=== PATIENT | female | born 1940 | race Caucasian/White ===

== ENCOUNTER 2019-03-15 08:47 | Day surgery (SDC) | payer MEDICARE, SELFPAY ==
[2019-03-13 08:07] VITALS: BMI 29.7
[2019-03-15] VITALS (9 sets, daily range): BP systolic 115–158; BP diastolic 67–99; PULSE 55–70; RESP 12–19; TEMP 35.8–36.9; O2SAT 79–98; BMI 29.7
--- NOTE | 2019-03-15 10:11 | PM.PREOP ---
Pre-operative Note Interval Note History & Physical reviewed/Exam performed by Physician: Yes Changes to H&P: No
--- NOTE | 2019-03-15 10:31 | SUR.PREOP ---
Pre-op note: patient complained of pressure under breast and around to back after returning from bathroom. VS with elevated BP. After some deep breaths and relaxation. Patient stated that she is a little nervous. BP decreased to 177/88. Dr. Conner and Dr. Herrera informed of patient symptoms. HR 61, O2 Sat 100 RA. Sister at bedside.
[2019-03-15] MEDS: MIDAZOLAM 2 MG/2 ML VIAL IV (10:44)
[2019-03-15] MEDS: CEFAZOLIN 2 GM/100 ML FROZ.PIGGY IV (11:07)
--- NOTE | 2019-03-15 11:46 | SUR.OPER ---
Beach chair with skytron shoulder positioner. Lower body on padded OR bed. Head in foam padded head cradle, secured with straps. Non-operative arm secured <90 degrees abduction. Pillow under knees. Safety belt at thigh. Cloth tape over blanket over lower legs.
[2019-03-15] MEDS: SODIUM CHLORIDE IRRIG SOLUTION 3,000 ML, EPINEPHrine 1 MG IRR (11:56)
[2019-03-15] MEDS: LIDOCAINE 1% W/EPI 20 ML INJ (12:00)
[2019-03-15] MEDS: LACTATED RINGERS 1,000 ML 42 ML IV (12:14)
--- NOTE | 2019-03-15 13:43 | SUR.PHASEI ---
Report to Keri Sanchez
--- NOTE | 2019-03-15 13:52 | PM.OP.1 ---
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 Surgeon: Cruzito Triplett Assistant Nurse Manager: Fabi Lawton Anesthesia Type: General and Peripheral nerve block Operative Notes Findings: Complete tear of the supraspinatus with some extension into the infraspinatus with retraction to the rim of the glenoid. Arthritic changes more so on the glenoid then the humeral head. But no sign of complete cartilage loss. No loose bodies. Degenerative changes to the labrum extensively. Subluxation of the biceps tendon due to the subscapularis tear. Closure Type: primary Specimen(s): none sent Applied: implant(s) Estimated Blood Loss (mL): 10 Blood products transfused: none Procedure in detail: On date of service, Patient was met in the holding area. The operative site was signed and witnessed by the OR staff. The surgeries once again discussed with the patient and any remaining questions they had were answered fully. Patient was taken back to the operating theater and placed on the operating table in a supine position. Great care was taken to ensure that all bony prominences were properly padded. Patient was then placed into the beach chair position. The head and neck were properly positioned and secured. A timeout was performed verifying patient's name, procedure, and the operative site. The upper extremity was then prepped and draped in the normal sterile fashion. Previously, the bony anatomy and portal sites were marked out as well as injected with Marcaine with epinephrine. An 11 blade was used to make an incision in the posterior aspect of the shoulder. The camera was placed, and a diagnostic shoulder scope was performed. Findings listed above. Next under direct visualization, a anterior portal was made. Shaver was brought in and extensive debridement of the glenohumeral joint was performed. Patient had significant amount of degenerative changes to the labral tissue as well as signs of a previous biceps rupture. The residual tissue of the biceps tendon was debrided with a shaver. Once all the degenerative tissue in the glenohumeral joint was removed we then turned our attention to the subacromial space. Next the camera was placed into the subacromial space. A lateral portal was obtained under direct visualization. A combination of the shaver and vapor wand, a debridement of the inflamed tissue as well as inflamed bursa was performed. The lateral gutter was also cleaned out. This gave us good visualization of the bursal aspect of the rotator cuff as well as the acromial arch. As mentioned above, patient had complete tear of the supraspinatus with some extension into the infraspinatus. The torn edge of the rotator cuff showed quite a bit of degenerative changes but the remaining rotator cuff tissue was still quite robust and healthy. Also both the supraspinatus and infraspinatus had very good excursion to the rotator cuff footprint. Patient also had a complete tear of his subscapularis. Shaver was used to completely debride the bursal tissue of the subacromial and subdeltoid space. A 5.5 bur was used to do a subacromial decompression. Due to the subscapularis tear it was decided at this point to convert to an open procedure. The anterior portal site was extended both distally and proximally going up to the AC joint as well as distally towards the axillary crease. Ten blade was used to incise through skin and fascial tissue. Electrocautery was used to achieve hemostasis. Continued sharp dissection was performed until the deltoid fascia was visualized. We could see our opening into the deltoid from our anterior portal. This was extended both distally and proximally giving us good visualization of the humeral head as well as the subacromial space. Using a Cade elevator the rotator cuff was freed of any adhesions both articular sided as well as bursal sided. The degenerative portion was sharply excised using a 10 blade. Traction sutures were placed. Next a speed bridge repair was done to repair both the supraspinatus and infraspinatus back to the rotator cuff footprint. Combination of the rongeur and bur were used to decorticate the rotator cuff footprint. Double row repair was performed of the supraspinatus and infraspinatus forming a secure repair as well as nayana covering the humeral head which was previously almost completely exposed. We next turned our attention to subscapularis. Cade elevator was used again to free up the tendon tissue from adhesions both bursal sided and articular sided. Once we had good excursion of the subscapularis fiber tape was passed in a horizontal mattress fashion twice and then was placed into 2 separate swivel lock anchor to secure the subscapularis back to the lesser tuberosity. Shoulder was taken through range of motion. Good overall repair and coverage of the rotator cuff and humeral head. Wound was copiously irrigated then closed in a layered fashion. Deltoid fascia was repaired using FiberWire. This gave a good solid repair of the split that was made in the deltoid fascia. Shoulder was cleaned dried dressed patient was extubated and taken to the PACU in stable condition. Complications: none Post-operative Condition: stable Disposition: PACU Plan for aftercare: Patient will follow our postoperative protocol for rotator cuff repair. Patient had the subscapularis repaired as well so no external rotation beyond 15?.
--- NOTE | 2019-03-15 15:29 | SUR.PHASEII ---
Assisted patient to dress, sling placed. Assisted to void. Brief placed.
== END 2019-03-15 15:07 | disposition home or self-care (01) ==
PROVIDERS: PCP Family Medicine; Visit Provider Orthopaedic Surgery
PROC: (CPT 29827; principal; 2019-03-15 10:15)
DX: S46.012A Strain of muscle(s) and tendon(s) of the rotator cuff of left shoulder, initial encounter (principal); W19.XXXA Unspecified fall, initial encounter; G89.18 Other acute postprocedural pain
CPT/HCPCS: 23410; 29823; 64415; 64450; J0171; J0690; J1100; J2250; J2405; J2704; J3010

== ENCOUNTER 2021-06-16 10:58 | Day surgery (SDC) | payer MEDICARE, SELFPAY ==
[2021-06-16 11:25] VITALS: BP 159/91; PULSE 62; RESP 16; TEMP 36.7; O2SAT 97; BMI 29.8
[2021-06-16] MEDS: PROPARACAINE 0.5% OPHTH SOL 2 DROPS EYE-OP (11:35)
[2021-06-16] MEDS: CATARACT EYE COMPOUND (10 DROPS/SYRINGE) 3 DROPS EYE-OP (11:42)
--- NOTE | 2021-06-16 12:28 | PM.PREOP ---
Pre-operative Note Interval Note History & Physical reviewed/Exam performed by Physician: Yes Changes to H&P: No
--- NOTE | 2021-06-16 12:29 | PM.OP.1 ---
Operative Date/Time/Diagnoses Pre-op diagnosis: Nuclear cataract right eye Procedure & Clinicians Procedure: Cataract Surgery Same procedure as scheduled: Yes Surgeon: Everette Durant Anesthesia Type: MAC +/- and Sedation Operative Notes Procedure in detail: Patient brought to the operating suite. Tetracaine drops placed in the right eye. Patient was prepped and draped in sterile manner. Wire lid speculum was placed in the eye. Betadine drops were placed on the eye. This was irrigated. Lidocaine jelly was placed on the eye. A paracentesis port was created with a side-port blade. 0.1 mL 1% preservative free lidocaine was injected into the anterior chamber. The anterior chamber was deepened with viscoelastic. 2.6 mm keratome was used to create a temporal clear corneal incision. Cystotome and Utrata forceps were used to create continuous tear capsulorrhexis. Balanced salt solution was used to hydro dissect the nucleus. The phacoemulsification handpiece was inserted and the nucleus was removed using the stop and chop technique. The irrigation aspiration handpiece was inserted and the remaining cortex was removed. Anterior chamber was deepened with viscoelastic. An [place] DIB00 intraocular lens with a power of 23.5 was injected into the capsular bag. Irrigation aspiration handpiece was inserted and the remaining viscoelastic was removed. Incision was hydrated with balanced salt solution and found to be leak free with pressure with Weck-Trista sponges. 0.1 mL Vigamox injected anterior chamber. 0.3 mL Kenalog 10 mg was injected subconjunctivally. Lid speculum was removed. The patient left the operating room in excellent condition. Complications: none Post-operative Condition: stable Disposition: same day surgery
[2021-06-16] MEDS: MOXIFLOXACIN INJ 4 MG/0.8 ML VIAL 0.5 MG EYE-OP (12:48)
[2021-06-16] MEDS: HYALURONATE SODIUM 30 MG-10 MG/ML SYRINGES 1 BOX INTRAOCULA (12:48)
[2021-06-16] MEDS: TETRACAINE 0.5% OPHTH DROPS 4 ML 2 DROPS EYE-OP (12:49)
[2021-06-16] MEDS: BALANCED SALT IRRIG SOLN NO.2 500 ML, EPINEPHrine 1 MG IRR (12:49)
[2021-06-16] MEDS: LIDOCAINE 2% (GLYDO) 6 ML GEL TOP (12:49)
[2021-06-16] MEDS: TRIAMCINOLONE 50 MG/5 ML VIAL INJ (12:49)
[2021-06-16] MEDS: PHENYLEPHRINE/LIDOCAINE VIAL (OR) 0.2 ML EYE-OP (12:49)
[2021-06-16 13:18] VITALS: BP 159/91; PULSE 62; RESP 16; TEMP 36.7; O2SAT 97
== END 2021-06-16 13:23 | disposition home or self-care (01) ==
PROVIDERS: PCP Family Medicine; Referring Provider Ophthalmology; Visit Provider Ophthalmology
PROC: (CPT 66984; principal; 2021-06-16 12:45)
DX: H25.11 Age-related nuclear cataract, right eye (principal)
CPT/HCPCS: 66984; J0171; J2250; J3301

== ENCOUNTER 2021-07-07 10:27 | Day surgery (SDC) | payer MEDICARE, SELFPAY ==
[2021-07-07 11:08] VITALS: BP 154/84; PULSE 57; RESP 16; TEMP 36.7; O2SAT 97; BMI 29.8
[2021-07-07] MEDS: PROPARACAINE 0.5% OPHTH SOL 2 DROPS EYE-OP (11:08)
[2021-07-07] MEDS: CATARACT EYE COMPOUND (10 DROPS/SYRINGE) 3 DROPS EYE-OP (11:17)
--- NOTE | 2021-07-07 12:13 | PM.PREOP ---
Pre-operative Note Interval Note History & Physical reviewed/Exam performed by Physician: Yes Changes to H&P: No
--- NOTE | 2021-07-07 12:13 | PM.OP.1 ---
Operative Date/Time/Diagnoses Pre-op diagnosis: Nuclear Cataract Left eye Post-op diagnosis: same Procedure & Clinicians Same procedure as scheduled: Yes Surgeon: Everette Durant Anesthesia Type: MAC +/- and Sedation Operative Notes Procedure in detail: Patient brought to the operating suite. Tetracaine drops placed in the left eye. Patient was prepped and draped in sterile manner. Wire lid speculum was placed in the eye. Betadine drops were placed on the eye. This was irrigated. Lidocaine jelly was placed on the eye. A paracentesis port was created with a side-port blade. 0.1 mL 1% preservative free lidocaine was injected into the anterior chamber. The anterior chamber was deepened with viscoelastic. 2.6 mm keratome was used to create a temporal clear corneal incision. Cystotome and Utrata forceps were used to create continuous tear capsulorrhexis. Balanced salt solution was used to hydro dissect the nucleus. The phacoemulsification handpiece was inserted and the nucleus was removed using the stop and chop technique. The irrigation aspiration handpiece was inserted and the remaining cortex was removed. Anterior chamber was deepened with viscoelastic. An [place] DIB00 intraocular lens with a power of 23.5 was injected into the capsular bag. Irrigation aspiration handpiece was inserted and the remaining viscoelastic was removed. Incision was hydrated with balanced salt solution and found to be leak free with pressure with Weck-Trista sponges. 0.1 mL Vigamox injected anterior chamber. 0.3 mL Kenalog 10 mg was injected subconjunctivally. Lid speculum was removed. The patient left the operating room in excellent condition. Complications: none Post-operative Condition: stable Disposition: same day surgery
[2021-07-07] MEDS: HYALURONATE SODIUM 30 MG-10 MG/ML SYRINGES 1 BOX INTRAOCULA (12:26)
[2021-07-07] MEDS: PHENYLEPHRINE/LIDOCAINE VIAL (OR) 0.2 ML EYE-OP (12:26)
[2021-07-07] MEDS: MOXIFLOXACIN INJ 4 MG/0.8 ML VIAL 0.5 MG EYE-OP (12:26)
[2021-07-07] MEDS: TETRACAINE 0.5% OPHTH DROPS 4 ML 2 DROPS EYE-OP (12:27)
[2021-07-07] MEDS: LIDOCAINE 2% (GLYDO) 6 ML GEL TOP (12:27)
[2021-07-07] MEDS: BALANCED SALT IRRIG SOLN NO.2 500 ML, EPINEPHrine 1 MG IRR (12:27)
[2021-07-07] MEDS: TRIAMCINOLONE 50 MG/5 ML VIAL INJ (12:27)
[2021-07-07 12:40] VITALS: BP 148/75; PULSE 59; RESP 16; TEMP 36.6; O2SAT 99
== END 2021-07-07 13:10 | disposition home or self-care (01) ==
PROVIDERS: PCP Family Medicine; Referring Provider Ophthalmology; Visit Provider Ophthalmology
PROC: (CPT 66984; principal; 2021-07-07 12:15)
DX: H25.12 Age-related nuclear cataract, left eye (principal)
CPT/HCPCS: 66984; J0171; J2250; J3301